=== PATIENT | female | born 1985 | race Caucasian/White ===

== ENCOUNTER 2023-07-16 20:14 | Observation (INO) | payer OTHER ==
[2023-07-16 20:44] LABS: BASOPHILS ABSOLUTE AUTO 0.05 K/uL (0.00-0.20); BASOPHILS PERCENT AUTO 0.5 % (0.0-2.0); EOSINOPHILS ABSOLUTE AUTO 0.03 K/uL (0.00-0.50); EOSINOPHILS PERCENT AUTO 0.3 % (0.0-5.0); HEMATOCRIT 39.1 % (34.0-46.0); HEMOGLOBIN 13.4 g/dL (11.7-15.5); LYMPHOCYTES ABSOLUTE AUTO 1.23 K/uL (0.50-3.50); MEAN CORPUSCULAR HEMOGLOBIN 30.8 pg (28.2-33.3); MEAN CORPUSCULAR HGB CONC 34.3 g/dL (31.7-36.0); MEAN CORPUSCULAR VOLUME 89.9 fL (84.0-98.0); MONOCYTES ABSOLUTE AUTO 0.11 K/uL (0.00-1.00); MONOCYTES PERCENT AUTO 1.1 % (2.0-14.0); NEUTROPHILS ABSOLUTE AUTO 8.82 K/uL (1.40-7.00); NEUTROPHILS PERCENT AUTO 86.1 % (45.0-80.0); PLATELET COUNT,PLT 299 K/uL (150-350); RED BLOOD CELL COUNT 4.35 M/uL (3.77-5.09); RED CELL DISTRIBUTION WIDTH 12.3 % (11.2-14.1); WHITE BLOOD CELL COUNT,WBC 10.2 K/uL (4.0-10.2)
[2023-07-16] MEDS: methylPREDNISolone Sodium Succinate 125 MG/2 ML SDV IVPUSH ONE (20:45)
[2023-07-16] MEDS: diphenhydrAMINE 50 MG/ML SDV IVPUSH ONE (20:45)
[2023-07-16] MEDS: Sodium Chloride 0.9% 10 ML Syringe FLUSH PRN (20:53)
[2023-07-16 21:00] LABS: ALBUMIN 4.2 g/dL (3.4-5.0); ANION GAP 10.1 meq/L (7-15); BILIRUBIN TOTAL 0.1 mg/dL (0.2-1.0); CALCIUM 9.2 mg/dL (8.5-10.1); CARBON DIOXIDE,CO2 25.9 mmol/L (21.0-32.0); CREATININE 1.11 mg/dL (0.51-1.17); EST CRCL DRUG DOSING (CG) 61.23 mL/min; PROTEIN TOTAL,TP 7.6 g/dL (6.4-8.2)
[2023-07-16] MEDS ORDERED: diphenhydrAMINE 25 MG Cap PO PRN (21:34)
[2023-07-17 06:13] LABS: APPEARANCE,URINE CLEAR; BILIRUBIN,URINE NEGATIVE (NEGATIVE); COLOR,URINE YELLOW; GLUCOSE,URINE 500 mg/dL (NEGATIVE); KETONES,URINE 15 mg/dL (NEGATIVE); LEUKOCYTE ESTERASE,URINE NEGATIVE (NEGATIVE); NITRITE,URINE NEGATIVE (NEGATIVE); OCCULT BLOOD,URINE NEGATIVE (NEGATIVE); PH,URINE 8.5 (5.0-9.0); PROTEIN,URINE NEGATIVE (NEGATIVE); UROBILINOGEN,URINE 0.2 E.U./dL (0.2-1.0)
== END 2023-07-17 10:25 | disposition home or self-care (01) ==
LOC: LL.ED 20:14 → UNDOADMOB 21:10 → LL.MS 21:10
PROVIDERS: ADMIT Emergency Medicine; ATTEND Emergency Medicine
DX: T78.40XA Allergy, unspecified, initial encounter (principal); E78.00 Pure hypercholesterolemia, unspecified; Z79.899 Other long term (current) drug therapy
CPT/HCPCS: 36415; 80053; 81003; 81025; 85025; 96374; 96375; 99223; 99238; 99285; G0378; J1200; J2930; J3490

== ENCOUNTER 2025-04-06 14:38 | Emergency (ER) | payer BC, OTHER ==
[2025-04-06] MEDS: Acetaminophen 325 MG Tab PO ONE (15:10)
[2025-04-06] MEDS: Acetaminophen/oxyCODONE 325-5 MG Tab PO ONE (15:10)
== END 2025-04-06 16:32 | disposition home or self-care (01) ==
LOC: LL.ED 14:38
DX: S82.892A Other fracture of left lower leg, initial encounter for closed fracture (principal); Z91.018 Allergy to other foods; Z88.8 Allergy status to other drugs, medicaments and biological substances; W01.0XXA Fall on same level from slipping, tripping and stumbling without subsequent striking against object, initial encounter
CPT/HCPCS: 73610; 99283; A9270